=== PATIENT | female | born 1960 | race Caucasian/White ===

== ENCOUNTER 2016-08-23 08:35 | Emergency (ER) | payer OTHER ==
[~2016-08-23] VITALS: Wt 69.0 kg
[~2016-08-23 08:35] MED LIST: ASPI-664 PO; CETI10CA PO; IBUP-1542 PO; LOSA1TAB19 PO; METO-448 PO; PANT40TA4 PO; SENN-53 PO
[2016-08-23 10:49] LABS: BASOPHILS % 0.3 % (0.0-2.0); CONDITION 1; EOSINOPHILS # 0.1 10^3/ul (0.0-0.5); EOSINOPHILS % 1.2 % (0.0-7.0); HEMATOCRIT 37.5 % (37.0-47.0); HEMOGLOBIN 12.6 g/dl (12.0-16.0); LH ANALYZER COMMENTS 1; LYMPHOCYTES # 1.9 10^3/ul (0.8-2.9); LYMPHOCYTES % 18.9 % (15.0-51.0); MEAN CORPUSCULAR HEMOGLOBIN 28.5 pg (29.0-33.0); MEAN CORPUSCULAR HGB CONC 33.4 g/dl (32.0-37.0); MEAN CORPUSCULAR VOLUME 85.2 fl (82.0-101.0); MEAN PLATELET VOLUME 8.1 fl (7.4-10.4); MONOCYTE # 0.6 10^3/ul (0.3-0.9); MONOCYTES % 6.1 % (0.0-11.0); NEUTROPHIL # 7.2 10^3/ul (1.6-7.5); NEUTROPHILS % 73.5 % (39.0-77.0); PLATELET COUNT 299 10^3/UL (140-440); RED BLOOD COUNT 4.41 10^6/ul (4.20-5.40); RED CELL DISTRIBUTION WIDTH 15.3 % (11.5-14.5); UNCORRECTED WBC 9.9 10^3/ul (4.8-10.8); WHITE BLOOD COUNT 9.9 10^3/ul (4.8-10.8)
[2016-08-23 10:55] LABS: ALBUMIN 4.4 g/dl (3.3-4.9)
[2016-08-23 10:56] LABS: POTASSIUM 4.2 mmol/L (3.5-5.1)
[2016-08-23 10:58] LABS: ALBUMIN/GLOBULIN RATIO 1.18; BILIRUBIN,INDIRECT 0.3 mg/dl (0-1.1); BILIRUBIN,TOTAL 0.3 mg/dl (0.2-1.3); CREATININE 0.41 mg/dl (0.44-1.00); TOTAL PROTEIN 8.1 g/dl (6.1-8.1)
[2016-08-23 10:59] LABS: CALCIUM 9.4 mg/dl (8.4-10.2)
--- NOTE | 2016-08-23 11:12 | RADRPT ---
PROCEDURE: XR Left Ankle. CLINICAL INDICATION: Trauma. TECHNIQUE: AP, oblique and lateral views of the left ankle were performed. COMPARISON: No. FINDINGS: The soft tissues and bony elements are normal. Ankle mortise is normal. IMPRESSION: 1. No evidence of an acute fracture or dislocation. Normal left ankle are RPTAT:AAJJ Physician Camilo Date Time Electronically viewed and signed by Chris Potter Physician on 08/23/2016 11:12 AYESHA/
[2016-08-23] MEDS ORDERED: CIPR500T4 PO (11:46)
[2016-08-23] MEDS ORDERED: DIPH1TAB PO (11:46)
[2016-08-23] MEDS ORDERED: TRAM50TA2 PO (11:46)
--- NOTE | 2016-08-23 11:50 | ERD ---
ER Documentation Chief Complaint Date/Time DATE: 08/23/16 TIME: 11:47 Chief Complaint abd pain for a few days with diarrhea no nausea no vomiting HPI This 56-year-old female is complaining of 15 days of diarrhea. She states that she has 3 bouts of diarrhea each day at rest described as watery nonmucous nonbloody stool. She has no vomiting nausea no abdominal pain. No known bad food exposures or others with the same illness at home. She says that sometimes eating causes her to have diarrhea. No fever no recent travel. She also complains of pain to her left ankle because she twisted it 4 days ago while walking she is complaining of sharp pain at the medial malleolus walking and better with rest no numbness or weakness ROS All systems reviewed and are negative except as per history of present illness. Medications Home Meds Active Scripts Diphenoxylate HCl/Atropine (Lomotil 2.5-0.025 mg Tablet) 1 Each Tablet, 1 TAB PO QID Y for DIARRHEA, #10 TAB Prov:KILEY KELLER DO 08/23/16 Ciprofloxacin Hcl* (Ciprofloxacin Hcl*) 500 Mg Tablet, 500 MG PO BID for 5 Days , TAB Prov:KILEY KELLER DO 08/23/16 Tramadol HCl (Tramadol HCl) 50 Mg Tablet, 50 MG PO Q4 Y for PAIN, #20 TAB Prov:KILEY KELLER DO 08/23/16 Reported Medications Losartan-Hydrochlorothiazide (Losartan-HCTZ) 50-12.5 Mg Tab, 1 TAB PO DAILY, TAB 06/23/16 Pantoprazole* (Pantoprazole*) 40 Mg Tablet.dr, 40 MG PO DAILY, TAB 06/23/16 Aspirin* (Aspirin* EC) 81 Mg Tablet.dr, 81 MG PO DAILY, TAB 04/29/14 Ibuprofen* (Ibuprofen*) 600 Mg Tablet, 600 MG PO TID W/FOOD Y for PAIN/FEVER, TAB 04/29/14 Metoprolol Tartrate* (Lopressor*) 25 Mg Tab, 25 MG PO BID, TAB 04/29/14 Cetirizine Hcl* (Zyrtec*) 10 Mg Capsule, 10 MG PO DAILY, TAB 04/29/14 Discontinued Reported Medications Sennosides* (Senna Lax*) 8.6 Mg Tablet, 1 TAB PO Q12H Y for CONSTIPATION, TAB 06/23/16 Allergies Allergies: Coded Allergies: No Known Drug Allergies (Verified Allergy, Mild, 06/23/16) PMhx/Soc History of Surgery: Yes (L WRIST) Anesthesia Reaction: No Hx Neurological Disorder: No Hx Respiratory Disorders: No Hx Cardiac Disorders: Yes (HTN) Hx Psychiatric Problems: Yes (DEPRESSION, ANXIETY) Hx Miscellaneous Medical Probl: Yes (SEASONAL ALLERGIES) Hx Alcohol Use: No Hx Substance Use: No Hx Tobacco Use: No Smoking Status: Never smoker FmHx Family History: No coronary disease Physical Exam Vitals Vital Signs Date Time Temp Pulse Resp B/P Pulse Ox O2 Delivery O2 Flow Rate FiO2 08/23/16 08:41 98.7 93 21 131/72 98 Physical Exam Const: Well-developed, well-nourished Head: Atraumatic, normocephalic Eyes: Normal Conjunctiva, PERRLA, EOMI, normal sclera, no nystagmus ENT: Normal External Ears, Nose and Mouth, moist mucus membranes. Neck: Full range of motion. No meningismus, no lymphadenopathy. Resp: Clear to auscultation bilaterally, no wheezing, rhonchi, rales Cardio: Regular rate and rhythm, no murmurs, S1 S2 present Abd: Soft, non tender x 4, non distended. Normal bowel sounds, no guarding or rebound, no pulsitile abdominal masses or bruits Skin: No petechiae or rashes, no ecchymosis , no maculopapular rash Back: No midline or flank tenderness Ext: No cyanosis, or edema, FROM x 4, normal inspection, neurovascularly intact x 4, there is some mild bruising to the medial malleolus of the ankle no swelling there is full range of motion with minimal pain neurovascularly intact Neur: Awake and alert, STR 5/5 x 4, sensation intact x 4, no focal findings, cerebellum intact Psych: Normal Mood and Affect Result Diagram: 08/23/16 1025 08/23/16 1025 Results 24 hrs Laboratory Tests Test 08/23/16 10:25 Alanine Aminotransferase (ALT/SGPT) 35IU/L Albumin 4.4g/dl Albumin/Globulin Ratio 1.18 Alkaline Phosphatase 145IU/L Anion Gap 17 Aspartate Amino Transf (AST/SGOT) 30IU/L Basophils # 0.010^3/ul Basophils % 0.3% Blood Morphology Comment Blood Urea Nitrogen 12mg/dl Calcium Level 9.4mg/dl Carbon Dioxide Level 31mmol/L Chloride Level 99mmol/L Creatinine 0.41mg/dl Direct Bilirubin 0.00mg/dl Eosinophils # 0.110^3/ul Eosinophils % 1.2% Globulin 3.70g/dl Glucose Level 103mg/dl Hematocrit 37.5% Hemoglobin 12.6g/dl Indirect Bilirubin 0.3mg/dl Lymphocytes # 1.910^3/ul Lymphocytes % 18.9% Mean Corpuscular Hemoglobin 28.5pg Mean Corpuscular Hemoglobin Concent 33.4g/dl Mean Corpuscular Volume 85.2fl Mean Platelet Volume 8.1fl Monocytes # 0.610^3/ul Monocytes % 6.1% Neutrophils # 7.210^3/ul Neutrophils % 73.5% Nucleated Red Blood Cells # 0.010^3/ul Nucleated Red Blood Cells % 0.0/100WBC Platelet Count 65948^3/UL Potassium Level 4.2mmol/L Red Blood Count 4.4110^6/ul Red Cell Distribution Width 15.3% Sodium Level 143mmol/L Total Bilirubin 0.3mg/dl Total Protein 8.1g/dl White Blood Count 9.910^3/ul Procedures/MDM PROCEDURE: XR Left Ankle. CLINICAL INDICATION: Trauma. TECHNIQUE: AP, oblique and lateral views of the left ankle were performed. COMPARISON: No. FINDINGS: The soft tissues and bony elements are normal. Ankle mortise is normal. IMPRESSION: 1. No evidence of an acute fracture or dislocation. Normal left ankle are RPTAT:AAJJ Physician Camilo Date Time Electronically viewed and signed by Physician Camilo on 08/23/2016 11:12 AYESHA/ CC: KILEY KELLER DO Treat patient's diarrhea with Cipro for 5 days. She may have an infectious cause. Blood work is unremarkable. X-ray of the ankle is normal Departure Diagnosis: Primary Impression: Diarrhea Diarrhea type: unspecified type Qualified Code: R19.7 - Diarrhea, unspecified type Additional Impression: Ankle sprain Encounter type: initial encounter Involved ligament of ankle: unspecified ligament Laterality: left Qualified Code: S93.402A - Sprain of left ankle, unspecified ligament, initial encounter Condition: Stable Patient Instructions: Treating Diarrhea, Treating Ankle Sprains KILEY KELLER DO Aug 23, 2016 11:50
[2016-08-23 11:59] VITALS: BP 128/77; PULSE 72; RESP 19; TEMP 98.4
== END 2016-08-23 12:01 | disposition home or self-care (01) ==
LOC: E/R 08:35
DX: R19.7 Diarrhea, unspecified (principal); S93.402A Sprain of unspecified ligament of left ankle, initial encounter; I10 Essential (primary) hypertension; X50.1XXA Overexertion from prolonged static or awkward postures, initial encounter; Y92.9 Unspecified place or not applicable; Z79.82 Long term (current) use of aspirin
CPT/HCPCS: 36415; 73610; 80053; 85025; Z7502

== ENCOUNTER 2016-10-04 00:57 | Emergency (ER) | payer OTHER ==
[~2016-10-04] VITALS: Ht 157.5 cm; Wt 77.2 kg
[~2016-10-04 00:57] MED LIST changes: +CIPR500T4 PO; +DIPH1TAB PO; -SENN-53 PO; +TRAM50TA2 PO
[2016-10-04 01:03] VITALS: Ht 157.5 cm; Wt 77.2 kg
--- NOTE | 2016-10-04 02:50 | ERD ---
ER Documentation Chief Complaint Date/Time DATE: 10/04/16 TIME: 02:47 Chief Complaint Check BP tonight, was elevated, felt worried, felt nauseous afterwards, denies any headache dizziness or chest pain HPI 56-year-old female with history of hypertension is here in emergency department for evaluation. Patient checked her blood pressure tonight and it was elevated, states that the systolic was in the 180s, she was worried about days, but nauseous afterwards, but the nausea went away already. Patient did not have any vomiting. Patient denies any chest pain palpitations dizziness. Patient denies any headache or neck pain. Patient denies any other pains at this time. Patient just wants her blood pressure to be checked, patient denies any other symptoms at this time. Patient currently takes Metoprolol for her blood pressure, is controlled by primary care doctor. Patient denies any leg swelling. ROS All systems reviewed and are negative except as per history of present illness. Medications Home Meds Active Scripts Diphenoxylate HCl/Atropine (Lomotil 2.5-0.025 mg Tablet) 1 Each Tablet, 1 TAB PO QID Y for DIARRHEA, #10 TAB Prov:KILEY KELLER DO 08/23/16 Ciprofloxacin Hcl* (Ciprofloxacin Hcl*) 500 Mg Tablet, 500 MG PO BID for 5 Days , TAB Prov:KILEY KELLER DO 08/23/16 Tramadol HCl (Tramadol HCl) 50 Mg Tablet, 50 MG PO Q4 Y for PAIN, #20 TAB Prov:KILEY KELLER DO 08/23/16 Reported Medications Losartan-Hydrochlorothiazide (Losartan-HCTZ) 50-12.5 Mg Tab, 1 TAB PO DAILY, TAB 06/23/16 Pantoprazole* (Pantoprazole*) 40 Mg Tablet.dr, 40 MG PO DAILY, TAB 06/23/16 Aspirin* (Aspirin* EC) 81 Mg Tablet.dr, 81 MG PO DAILY, TAB 04/29/14 Ibuprofen* (Ibuprofen*) 600 Mg Tablet, 600 MG PO TID W/FOOD Y for PAIN/FEVER, TAB 04/29/14 Metoprolol Tartrate* (Lopressor*) 25 Mg Tab, 25 MG PO BID, TAB 04/29/14 Cetirizine Hcl* (Zyrtec*) 10 Mg Capsule, 10 MG PO DAILY, TAB 04/29/14 Allergies Allergies: Coded Allergies: No Known Drug Allergies (Verified Allergy, Mild, 06/23/16) PMhx/Soc History of Surgery: Yes (L WRIST) Anesthesia Reaction: No Hx Neurological Disorder: No Hx Respiratory Disorders: No Hx Cardiac Disorders: Yes (htn) Hx Psychiatric Problems: Yes (DEPRESSION, ANXIETY) Hx Miscellaneous Medical Probl: Yes (SEASONAL ALLERGIES) Hx Alcohol Use: No Hx Substance Use: No Hx Tobacco Use: No Smoking Status: Never smoker FmHx Family History: No coronary disease, No diabetes, No other Physical Exam Vitals Vital Signs Date Time Temp Pulse Resp B/P Pulse Ox O2 Delivery O2 Flow Rate FiO2 10/04/16 01:03 98.3 74 18 147/86 99 Physical Exam GENERAL: The patient is well developed and appropriate for usual state of health, in no apparent distress. CHEST: Clear to auscultation bilaterally. There are no rales, wheezes or rhonchi. HEART: Regular rate and rhythm. No murmurs, clicks, rubs or gallops. No S3 or S4. ABDOMEN: Soft, nontender and nondistended. Good bowel sounds. No rebound or guarding. No gross peritonitis. No gross organomegaly or masses. No Hahn sign or McBurney point tenderness. BACK: No midline or flank tenderness. EXTREMITIES: Equal pulses bilaterally. There is no peripheral clubbing, cyanosis or edema. No focal swelling or erythema. Full range of motion. Grossly neurovascularly intact. NEURO: Alert and oriented. Cranial nerves 2-12 intact. Motor strength in all 4 extremities with 5/5 strength. Sensation grossly intact. Normal speech and gait. SKIN: There is no apparent rash or petechia. The skin is warm and dry. HEMATOLOGIC AND LYMPHATIC: There is no evidence of excessive bruising or lymphedema. No gross cervical, axillary, or inguinal lymphadenopathy. Results 24 hrs EKG was done, read by me and is normal sinus rhythm at a rate of 69, normal axis , there is no ST changes or changes in the EKG that indicates any cardiac emergencies at this time. Patient's EKG was also reviewed by . Impression: no acute findings on EKG Procedures/MDM Patient was concerned about her elevated blood pressure most likely causing the nausea, this time, patient does not have any cardiopulmonary emergencies or stroke symptoms. Patient is asymptomatic. Blood pressure is also controlled at this time. Elevation of blood pressure may be stress related. Patient's blood pressure was elevated (>120/80) but appears stable without evidence of hypertension emergency or urgency. The patient was counseled about the risks of hypertension and urged to pursue outpatient monitoring and therapy within a week with their primary care physician. Departure Diagnosis: Primary Impression: Hypertension Hypertension type: unspecified secondary hypertension Qualified Code: I15.9 - Secondary hypertension Condition: Stable Patient Instructions: High Blood Pressure (Hypertension) Additional Instructions: Patient's blood pressure was elevated (>120/80) but appears stable without evidence of hypertension emergency or urgency. The patient was counseled about the risks of hypertension and urged to pursue outpatient monitoring and therapy within a week with their primary care physician. MARLEN DAWSON NP Oct 04, 2016 02:50
== END 2016-10-04 04:32 | disposition home or self-care (01) ==
LOC: FTE 00:57
DX: I15.9 Secondary hypertension, unspecified (principal); I10 Essential (primary) hypertension; Z79.82 Long term (current) use of aspirin
CPT/HCPCS: 93005; Z7502

== ENCOUNTER 2017-03-05 22:07 | Emergency (ER) | payer OTHER ==
[~2017-03-05] VITALS: Ht 160 cm; Wt 81.5 kg
[2017-03-05 22:15] VITALS: Ht 160 cm; Wt 81.5 kg
[2017-03-05] MEDS ORDERED: DOCU-144 PO (23:47)
[2017-03-05] MEDS ORDERED: HYDR25SU23 PR (23:47)
[2017-03-05] MEDS ORDERED: POLY17PO6 PO (23:47)
--- NOTE | 2017-03-06 00:12 | ERD ---
ER Documentation Chief Complaint Date/Time DATE: 03/06/17 TIME: 00:09 Chief Complaint "Rectal" pain x 8 days. Denies bleeding HPI 56-year-old female presents here in emergency department for complaints of a bump in the rectal temp, rectal pain upon defecation for 8 days now. Patient denies any blood in the stool. Patient denies any black stool. Patient feels some burning sensation in the rectal area and some pain, burning pain 4/10 scale , worse upon defecation. Patient denies any fever or chills. Patient denies any abdominal pain. ROS All systems reviewed and are negative except as per history of present illness. Medications Home Meds Active Scripts Polyethylene Glycol* (Miralax*) 17 Gm Powd.pack, 17 GM PO DAILY, #7 Prov:MARLEN DAWSON NP 03/05/17 Docusate Sodium* (Colace*) 100 Mg Capsule, 100 MG PO TID, #30 CAP Prov:MARLEN DAWSON NP 03/05/17 Hydrocortisone Acetate (Anusol-Hc) 25 Mg Supp.rect, 1 SUPP IA BID Y for HEMORROID PAIN/ITCHING, #12 SUPP.RECT Prov:MARLEN DAWSON NP 03/05/17 Diphenoxylate HCl/Atropine (Lomotil 2.5-0.025 mg Tablet) 1 Each Tablet, 1 TAB PO QID Y for DIARRHEA, #10 TAB Prov:KILEY KELLER DO 08/23/16 Ciprofloxacin Hcl* (Ciprofloxacin Hcl*) 500 Mg Tablet, 500 MG PO BID for 5 Days , TAB Prov:KILEY KELLER DO 08/23/16 Tramadol HCl (Tramadol HCl) 50 Mg Tablet, 50 MG PO Q4 Y for PAIN, #20 TAB Prov:KILEY KELLER DO 08/23/16 Reported Medications Losartan-Hydrochlorothiazide (Losartan-HCTZ) 50-12.5 Mg Tab, 1 TAB PO DAILY, TAB 06/23/16 Pantoprazole* (Pantoprazole*) 40 Mg Tablet.dr, 40 MG PO DAILY, TAB 06/23/16 Aspirin* (Aspirin* EC) 81 Mg Tablet.dr, 81 MG PO DAILY, TAB 04/29/14 Ibuprofen* (Ibuprofen*) 600 Mg Tablet, 600 MG PO TID W/FOOD Y for PAIN/FEVER, TAB 04/29/14 Metoprolol Tartrate* (Lopressor*) 25 Mg Tab, 25 MG PO BID, TAB 04/29/14 Cetirizine Hcl* (Zyrtec*) 10 Mg Capsule, 10 MG PO DAILY, TAB 04/29/14 Allergies Allergies: Coded Allergies: No Known Drug Allergies (Verified Allergy, Mild, 03/05/17) PMhx/Soc History of Surgery: Yes (L WRIST) Anesthesia Reaction: No Hx Neurological Disorder: No Hx Respiratory Disorders: No Hx Cardiac Disorders: Yes (htn) Hx Psychiatric Problems: Yes (DEPRESSION, ANXIETY) Hx Miscellaneous Medical Probl: Yes (SEASONAL ALLERGIES) Hx Alcohol Use: No Hx Substance Use: No Hx Tobacco Use: No Smoking Status: Never smoker FmHx Family History: No coronary disease, No diabetes, No other Physical Exam Vitals Vital Signs Date Time Temp Pulse Resp B/P Pulse Ox O2 Delivery O2 Flow Rate FiO2 03/05/17 22:15 98.5 74 18 115/60 100 Physical Exam GENERAL: The patient is well developed and appropriate for usual state of health, in no apparent distress. CHEST: Clear to auscultation bilaterally. There are no rales, wheezes or rhonchi. HEART: Regular rate and rhythm. No murmurs, clicks, rubs or gallops. No S3 or S4. ABDOMEN: Soft, nontender and nondistended. Good bowel sounds. No rebound or guarding. No gross peritonitis. No gross organomegaly or masses. No Hahn sign or McBurney point tenderness. BACK: No midline or flank tenderness. EXTREMITIES: Equal pulses bilaterally. There is no peripheral clubbing, cyanosis or edema. No focal swelling or erythema. Full range of motion. Grossly neurovascularly intact. NEURO: Alert and oriented. Cranial nerves 2-12 intact. Motor strength in all 4 extremities with 5/5 strength. Sensation grossly intact. Normal speech and gait. SKIN: There is no apparent rash or petechia. The skin is warm and dry. HEMATOLOGIC AND LYMPHATIC: There is no evidence of excessive bruising or lymphedema. No gross cervical, axillary, or inguinal lymphadenopathy. RECTAL: Noted external hemorrhoids, nontender on palpation, nonthrombosed. No rectal bleeding noted. Procedures/MDM Medical decision making: Patient's most likely consistent with an external hemorrhoid. No symptoms of any thrombosed hemorrhoid. No rectal bleeding noted at this time. No abscess noted, no pilonidal cyst abscess. Prescription was given for Anusol suppositories, Colace and MiraLAX, is advised to follow-up with primary care doctor in 2-3 days for reevaluation of symptoms. Patient was advised to return to emergency department for any worsening symptoms. Disposition: Home. Stable Departure Diagnosis: Primary Impression: External hemorrhoid Condition: Stable Patient Instructions: Hemorrhoids MARLEN DAWSON NP Mar 06, 2017 00:12
[2017-03-06 00:38] VITALS: BP 118/62; PULSE 74; RESP 17; TEMP 98.7
== END 2017-03-06 00:39 | disposition home or self-care (01) ==
LOC: FTE 22:07
DX: K64.4 Residual hemorrhoidal skin tags (principal); I10 Essential (primary) hypertension; Z79.82 Long term (current) use of aspirin
CPT/HCPCS: 99284

== ENCOUNTER 2017-04-16 20:26 | Emergency (ER) | END 2017-04-16 21:36 | disposition home or self-care (01) | DX: L50.9 Urticaria, unspecified (principal); I10 Essential (primary) hypertension; Z79.82 Long term (current) use of aspirin | CPT/HCPCS: 96372; J1200; J2930; Z7502 ==

== ENCOUNTER 2017-05-24 22:21 | Emergency (ER) | payer OTHER ==
[~2017-05-24] VITALS: Ht 160 cm; Wt 82.4 kg
[~2017-05-24 22:21] MED LIST changes: +BEN50 PO; +DOCU-144 PO; +HYDR25SU23 PR; +POLY17PO6 PO; +PRED50TA PO
[2017-05-24 22:26] VITALS: Ht 160 cm; Wt 82.4 kg
[2017-05-25] MEDS ORDERED: DIPHENHYDRAMINE 25 MG CAP PO ONE (00:30)
[2017-05-25] MEDS ORDERED: METHYLPREDNISOLONE 125 MG INJ IM ONE (00:30)
[2017-05-25] MEDS ORDERED: FAMOTIDINE 20 MG TAB PO ONE (00:30)
[2017-05-25] MEDS ORDERED: FAMO-96 PO (01:07)
[2017-05-25] MEDS ORDERED: BEN25 PO (01:07)
[2017-05-25] MEDS ORDERED: PRED20TA PO (01:07)
--- NOTE | 2017-05-25 01:07 | ERD ---
ER Documentation Chief Complaint Chief Complaint Allergic reaction, swollen lower lip, feeling itchy all over HPI The patient is a 57-year-old female who presents to the Emergency Department with concern for a possible allergic reaction for the past 15 days. The patient notes that over the past 15 days, she has been experiencing intermittent symptoms of urticaria, pruritus, and lip swelling. Several days ago the left upper lip was swollen. Shortly afterwards, the right upper lip developed similar symptoms. The patient denies any known exacerbating or alleviating factors. At approximately 5:00 pm today, she developed itching to her abdomen and chest, and noted onset of hives. Shortly afterwards, she began to feel as if her lower lip was swollen. Given persistence of symptoms, she decided to present to the ED for evaluation. The patient denies any new exposures to new foods, drinks, detergents, lotions, shampoos, soaps, plants, animals, medications. Denies any tongue swelling. Denies difficulty swallowing or tolerating her oral secretions. Denies change in phonation. Denies throat tightness, shortness of breath, difficulty breathing. She has not taken any medication for symptomatic relief. She as no known allergies. ROS All systems reviewed and are negative except as per history of present illness. Medications Home Meds Active Scripts Famotidine* (Pepcid*) 20 Mg Tablet, 20 MG PO BID for 4 Days, TAB Prov:ADEOLA HEALY PA-C 05/25/17 Diphenhydramine Hcl* (Benadryl*) 25 Mg Cap, 25 MG PO Q6, #30 CAP Prov:ADEOLA HEALY PA-C 05/25/17 Prednisone* (Prednisone*) 20 Mg Tab, 40 MG PO DAILY for 4 Days, TAB Prov:ADEOLA HEALY PA-C 05/25/17 Prednisone* (Prednisone*) 50 Mg Tablet, 50 MG PO DAILY for 5 Days, TAB Prov:MARLEN DAWSON NP 04/16/17 Diphenhydramine Hcl* (Benadryl*) 50 Mg Cap, 50 MG PO Q6H Y for ITCHING/RASH, # 30 CAP Prov:MARLEN DAWSON NP 04/16/17 Polyethylene Glycol* (Miralax*) 17 Gm Powd.pack, 17 GM PO DAILY, #7 Prov:MARLEN DAWSON NP 03/05/17 Docusate Sodium* (Colace*) 100 Mg Capsule, 100 MG PO TID, #30 CAP Prov:MARLEN DAWSON NP 03/05/17 Hydrocortisone Acetate (Anusol-Hc) 25 Mg Supp.rect, 1 SUPP WA BID Y for HEMORROID PAIN/ITCHING, #12 SUPP.RECT Prov:MARLEN DAWSON NP 03/05/17 Diphenoxylate HCl/Atropine (Lomotil 2.5-0.025 mg Tablet) 1 Each Tablet, 1 TAB PO QID Y for DIARRHEA, #10 TAB Prov:KILEY KELLER DO 08/23/16 Ciprofloxacin Hcl* (Ciprofloxacin Hcl*) 500 Mg Tablet, 500 MG PO BID for 5 Days , TAB Prov:KILEY KELLER DO 08/23/16 Tramadol HCl (Tramadol HCl) 50 Mg Tablet, 50 MG PO Q4 Y for PAIN, #20 TAB Prov:KILEY KELLER DO 08/23/16 Reported Medications Losartan-Hydrochlorothiazide (Losartan-HCTZ) 50-12.5 Mg Tab, 1 TAB PO DAILY, TAB 06/23/16 Pantoprazole* (Pantoprazole*) 40 Mg Tablet.dr, 40 MG PO DAILY, TAB 06/23/16 Aspirin* (Aspirin* EC) 81 Mg Tablet.dr, 81 MG PO DAILY, TAB 04/29/14 Ibuprofen* (Ibuprofen*) 600 Mg Tablet, 600 MG PO TID W/FOOD Y for PAIN/FEVER, TAB 04/29/14 Metoprolol Tartrate* (Lopressor*) 25 Mg Tab, 25 MG PO BID, TAB 04/29/14 Cetirizine Hcl* (Zyrtec*) 10 Mg Capsule, 10 MG PO DAILY, TAB 04/29/14 Allergies Allergies: Coded Allergies: No Known Drug Allergies (Verified Allergy, Mild, 05/25/17) PMhx/Soc History of Surgery: Yes (L WRIST) Anesthesia Reaction: No Hx Neurological Disorder: No Hx Respiratory Disorders: No Hx Cardiac Disorders: Yes (htn) Hx Psychiatric Problems: Yes (DEPRESSION, ANXIETY) Hx Miscellaneous Medical Probl: Yes (SEASONAL ALLERGIES; gerd) Hx Alcohol Use: No Hx Substance Use: No Hx Tobacco Use: No Smoking Status: Never smoker Physical Exam Vitals Vital Signs Date Time Temp Pulse Resp B/P Pulse Ox O2 Delivery O2 Flow Rate FiO2 05/24/17 22:26 98.6 84 25 147/69 98 Physical Exam GENERAL: Well-developed, well-nourished, in no acute distress HEENT: Head is normocephalic, atraumatic. No scleral pallor or icterus. Conjunctiva pink. No periorbital swelling. Clear oropharynx. Moist mucous membranes. No pharyngeal erythema or exudates. Uvula is midline. Lower lip swelling. No tongue swelling. No trismus, stridor, pooling of oral secretions. Phonation is normal. No submandibular swelling. NECK: Supple. No masses, no tenderness, no lymphadenopathy. Trachea midline. No nuchal rigidity. Full range of motion. RESPIRATORY: Lungs are clear to auscultation bilaterally. No rales, rhonchi or wheezing. Equal breath sounds. Normal expiratory effort. CARDIOVASCULAR: Regular rate and rhythm. S1 and S2 normal. GASTROINTESTINAL: Abdomen is soft, nontender, and nondistended. No guarding, no rebound tenderness. Normal bowel sounds. FLANK: No CVA tenderness, no mass or swelling. BACK: No midline tenderness. EXTREMITIES: No clubbing, cyanosis, or edema. Normal skin perfusion. Moving all extremities. No focal swelling or erythema. Distal pulses are palpable, 2+ bilaterally. Capillary refill is less than 2 seconds. NEUROLOGIC: The patient is alert, awake, and oriented x 3. No focal neurologic deficits. INTEGUMENT: Skin is clean, dry and intact. Urticaria noted to upper abdomen, chest, and few to extremities. No skip or target lesions. No pain away from site of rash. No mucous membrane lesions. No crepitus or skin sloughing. No bullae, vesicles, ulcerations. No petechiae or purpura. PSYCHIATRIC: Appropriate; Cooperative. Results 24 hrs Current Medications Medications (Trade) Dose Ordered Sig/Karan Route PRN Reason Start Time Stop Time Status Last Admin Dose Admin Methylprednisolone Sodium Succinate (Solu-Medrol) 125 mg ONCE ONCE IM 05/25/17 00:30 05/25/17 00:31 DC 05/25/17 00:29 Diphenhydramine HCl (Benadryl) 25 mg ONCE ONCE PO 11/9/17 00:30 05/25/17 00:31 DC 05/25/17 00:29 Famotidine (Pepcid) 20 mg ONCE ONCE PO 05/25/17 00:30 05/25/17 00:31 DC 05/25/17 00:29 Procedures/[facility] EMERGENCY DEPARTMENT COURSE: The patient was stable throughout the ED course. Solu-Medrol 125 mg, Benadryl 25 mg and Pepcid 20 mg administered. On reevaluation, the patient reports no new complaints. Her lower lip swelling has improved, and she no longer has any urticaria or itching present. MEDICAL DECISION MAKING: This is a 57-year-old female presenting to the Emergency Department with complaint of allergic reaction, after she developed itching, urticarial rash and lower lip swelling. Upon arrival, patient was noted to have lower lip swelling. Otherwise, no tongue swelling. Her oropharynx and airway were patent, and she exhibited no breathing difficulties or wheezing. No evidence of airway compromise, inability to handle oral secretions or stridor. Patient's phonation was normal. No wheezing auscultated on physical examination. Circulation was appropriate, with no systemic signs of anaphylaxis, no hypotension. No associated urticarial, purpura or petechiae. The differential diagnosis includes, but is not limited to, allergic reaction, insect bite, fungal infection, cellulitis, MRSA, impetigo, shingles, herpes simplex virus, burn, abscess, dermatitis, viral syndrome, candidiasis, medication reaction, Lux Len syndrome, epidermolysis bullosa, toxic epidermal necrolysis, meningococcemia, toxic shock syndrome, hand foot and mouth disease, mononucleosis, heat rash. No evidence of crepitus, skip lesions or pain away from site of rash, concerning for necrotizing fasciitis or myositis. No mucosal involvement or appearance concerning for Jorje Len's syndrome or TENS. No airway compromise or concern for anaphylaxis. No indication of angioedema. After rest and administration of Solu-Medrol, Benadryl and Pepcid, the patient has no new complaints, and the patient remains stable with appropriate vital signs and no signs of respiratory distress. Her urticaria have resolved and the lip swelling has significantly improved. Upon my review and interpretation of the patient's presentation and overall ER course, I believe the patient's symptoms are most consistent with urticaria and likely allergic reaction, though inciting trigger unknown. At this time, the patient is in stable condition and therefore can be discharged home with prescriptions for Prednisone, Pepcid and Benadryl, and strict return precautions for signs of deteriorating or worsening condition. She is advised to follow up with her primary care provider within 1-2 days for allergy testing , reevaluation and further management, or return to the ER sooner for any new or worsening symptoms. I shared my medical decision making and plan with the patient at length and in great detail, and she verbally understands and agrees with the plan for further observation and care as an outpatient. At the time of discharge all questions were answered. Departure Diagnosis: Primary Impression: Allergic reaction Encounter type: initial encounter Qualified Code: T78.40XA - Allergic reaction, initial encounter Additional Impression: Urticaria Condition: Stable Patient Instructions: First Aid: Allergic Reactions, Hives Additional Instructions: Llame al doctor MAANA y bubba klaus NITHYA PARA DENTRO DE 1-2 WATSON.Dgale a la secretaria que nosotros le instruimos hacer esta nithya.Avise o llame si nava condicin se empeora antes de la nithya. Regresa aqui si peor o no mejor. ADEOLA HEALY PA-C May 25, 2017 01:07
== END 2017-05-25 01:18 | disposition home or self-care (01) ==
LOC: FTE 22:21
DX: L50.0 Allergic urticaria (principal); I10 Essential (primary) hypertension; Z79.82 Long term (current) use of aspirin
CPT/HCPCS: J2930; Z7502; Z7610

== ENCOUNTER 2017-08-27 01:52 | Emergency (ER) | END 2017-08-27 05:02 | disposition home or self-care (01) ==

== ENCOUNTER → 2019-03-23 | Emergency (ER) | payer OTHER ==
[~2019-03-23] VITALS: Ht 154.9 cm; Wt 90.0 kg
[~2019-03-23] MED LIST changes: -ASPI-664 PO; +ASPI-817 PO; +AZIT250T PO; +BEN25 PO; +DICL2.5D11 BOTH EYES; +ERYT1OIN6 BOTH EYES; +FAMO-96 PO; +FLUORESCEIN STRIP BOTH EYES ONE; +GUAI-173 PO; +IBUP-1561 PO; -LOSA1TAB19 PO; +LOSA1TAB22 PO; +MED4DP PO; +PRED20TA PO; +TETRACAINE 0.5% 4 ML OPH BOTH EYES ONE
[2019-03-23 08:34] VITALS: Ht 154.9 cm; Wt 90.0 kg
== END | disposition home or self-care (01) ==
LOC: FTE 08:31
DX: T54.91XA Toxic effect of unspecified corrosive substance, accidental (unintentional), initial encounter (principal); I10 Essential (primary) hypertension; X58.XXXA Exposure to other specified factors, initial encounter; Y92.9 Unspecified place or not applicable; Z79.82 Long term (current) use of aspirin
CPT/HCPCS: Z7610 ×2; 99283